=== PATIENT | male | born 1990 | race African-American/Black ===

== ENCOUNTER 2018-09-04 04:08 | Emergency (ER) | payer OTHER ==
[~2018-09-04] VITALS: Ht 188 cm; Wt 68.0 kg
--- NOTE | 2018-09-04 04:15 | NUR ---
ED Nurse Note: Recieved pt from home, with c/o neck pain x 3 days, pt states was moving and thinks strained neck, denies injury, fall, or any other complaitns or discomforts, pt with spouse, denies any medical history.
[2018-09-04] MEDS ORDERED: NKM (04:20)
[2018-09-04] MEDS ORDERED: IBUPROFEN600 MG ORAL (04:35)
[2018-09-04] MEDS ORDERED: HYDROCODON-ACE1 EA15 ORAL (04:35)
[2018-09-04] MEDS ORDERED: VALIUM5 MG ORAL (04:35)
--- NOTE | 2018-09-04 04:35 | Emergency Room Report ---
History of Present Illness General Chief Complaint: Neck Pain Source: Patient Present Illness HPI This is a 28-year-old male with no past history. He presents with chief complaint of neck pain. Onset was 3 days ago. At that time, he bent over to pick something up and felt stiffness in his neck. It progressively gotten worse in the last 3 days. Woke up today very stiff and can't move his neck. Pain is lateral aspect. Initially was on left side but now right side. No pain going down his arms. No focal deficit. No trauma. Pain is 8 out of 10. Worse with movement. No other complaint. Allergies: Coded Allergies: No Known Allergies (Unverified , 09/04/18) Patient History Past Medical History: none, see triage record, old chart reviewed Past Surgical History: none Pertinent Family History: none Social History: Denies: smoking Immunizations: other Reviewed Nursing Documentation: PMH: Agreed; PSxH: Agreed Nursing Documentation-PMH Past Medical History: No Stated History Review of Systems Eye: Denies: eye pain, blurred vision ENT: Denies: ear pain, nose congestion, throat swelling Respiratory: Denies: cough, shortness of breath Cardiovascular: Denies: chest pain, palpitations Gastrointestinal: Denies: abdominal pain, diarrhea, nausea, vomiting Musculoskeletal: Denies: back pain, joint pain Skin: Denies: rash Neurological: Denies: headache, numbness Endocrine: Denies: increased thirst, increased urine Hematologic/Lymphatic: Denies: easy bruising All Other Systems: negative except mentioned in HPI Physical Exam Vital Signs Date Time Temp Pulse Resp B/P (MAP) Pulse Ox O2 Delivery O2 Flow Rate FiO2 09/04/18 04:08 98.1 56 18 98 Room Air vitals unremarkable Sp02 EP Interpretation: reviewed, normal General Appearance: well appearing, no apparent distress, alert Head: normocephalic, atraumatic Eyes: bilateral eye PERRL, bilateral eye EOMI ENT: hearing grossly normal, normal pharynx Neck: supple, no meningismus, other - Decreased range of motion. No midline tenderness. Muscle spasm to the right paraspinous muscle. Respiratory: chest non-tender, lungs clear, normal breath sounds Cardiovascular #1: regular rate, rhythm, no murmur Gastrointestinal: normal bowel sounds, non tender, no mass, no organomegaly, no bruit, non-distended Musculoskeletal: back normal, gait/station normal, normal range of motion Psychiatric: mood/affect normal Skin: warm/dry Medical Decision Making Diagnostic Impression: Primary Impression: Neck muscle spasm ER Course Patient with neck spasm. No fracture. I see no need for x-rays since he has no trauma. There is no bony tenderness. Last Vital Signs Date Time Temp Pulse Resp B/P (MAP) Pulse Ox O2 Delivery O2 Flow Rate FiO2 09/04/18 04:08 98.1 56 18 98 Room Air Status: unchanged Disposition: HOME, SELF-CARE Condition: Stable Scripts Diazepam* (VALIUM*) 5 Mg Tablet 5 MG ORAL TID PRN for spasm, #21 TAB 0 Refills Prov: Siva Olson MD 09/04/18 Ibuprofen* (MOTRIN*) 600 Mg Tablet 600 MG ORAL THREE TIMES A DAY, #30 TAB 0 Refills Prov: Siva Olson MD 09/04/18 Hydrocodone/Acetaminophen 5-325* (HYDROCODONE/ACETAMINOPHEN 5-325*) 1 Each Tablet 1 TAB ORAL Q6H PRN for For Pain, #15 TAB 0 Refills Prov: Siva Olson MD 09/04/18 Referrals: [facility],REFERRING (PCP) Additional Instructions: Follow-up with your doctor in 7 days. If symptoms don't improve, may need MRI. Return if symptom worsen. Siva Olson MD September 04, 2018 04:35
[2018-09-04 04:50] VITALS: BP 118/78
--- NOTE | 2018-09-04 04:50 | NUR ---
ER DISCHARGE NOTE: Patient is cleared to be discharged per ERMD, pt is aox4, on room air, with stable vital signs. pt was given dc and prescription instructions, pt was able to verbalize understanding, pt id band removed without complications. pt is able to ambulate with steady gait. pt took all belongings.
== END 2018-09-04 04:50 | disposition home or self-care (01) ==
LOC: EMR 04:28
DX: M62.838 Other muscle spasm (principal); M54.2 Cervicalgia
CPT/HCPCS: 99282